=== PATIENT | female | born 1995 | race Caucasian/White ===

== ENCOUNTER 2020-01-10 14:41 | Observation (INO) | payer OTHER ==
[2020-01-10] MEDS ORDERED: IV RINGERS,LACTATED 1000ML 1,000 ML IV SCH (15:37)
[2020-01-10 15:48] LABS: BILIRUBIN,URINE SMALL (NEG); CLARITY,URINE CLOUDY; COLOR,URINE AMBER; NITRITE,URINE NEGATIVE (NEG); PROTEIN,URINE NEGATIVE (NEG-TRACE)
[2020-01-10 15:52] LABS: SQUAMOUS EPITHELIAL CELL,UR MANY /LPF
[2020-01-10 15:53] LABS: BACTERIA,URINE MANY /HPF (0-FEW); WBC,URINE 20-40 /HPF (0-4)
== END 2020-01-10 16:40 | disposition home or self-care (01) ==
LOC: 3 SO LND 14:41
PROVIDERS: ADMIT Obstetrics & Gynecology; ATTEND Obstetrics & Gynecology
DX: O26.853 Spotting complicating pregnancy, third trimester (principal); O62.9 Abnormality of forces of labor, unspecified; Z3A.28 28 weeks gestation of pregnancy
CPT/HCPCS: 81001; 87086; G0378; G0379

== ENCOUNTER 2020-01-14 03:46 | Inpatient (IN) | payer OTHER ==
[~2020-01-14] VITALS: Ht 165.1 cm; Wt 95.3 kg
[2020-01-14] MEDS ORDERED: OXYTOCIN 30 UNIT/500 ML PREMIX 500 ML IV ONE (03:54)
[2020-01-14] MEDS ORDERED: OXYTOCIN PREMIX 30 UNIT/500 ML NS BAG. IV ONE (04:00)
[2020-01-14] MEDS ORDERED: IV RINGERS,LACTATED 1000ML 1,000 ML IV SCH (04:12)
[2020-01-14] MEDS ORDERED: OXYTOCIN 30 UNIT/500 ML PREMIX 500 ML IV PRN ×3 (04:15→05:00)
[2020-01-14] MEDS ORDERED: IBUPROFEN 400 MG TABLET. PO PRN ×2 (04:15→05:00)
[2020-01-14] MEDS ORDERED: LIDOCAINE 1% PF 30 ML VIAL. INJ PRN (04:15)
[2020-01-14] MEDS ORDERED: TERBUTALINE 1 MG/ML VIAL. SQ PRN (04:15)
[2020-01-14] MEDS ORDERED: 0.9 % SODIUM CHLORIDE 10 ML DISP.SYRIN. IV PRN ×2 (04:15→05:00)
--- NOTE | 2020-01-14 04:37 | PDOC1 ---
OB - History Hx of Present Care: Limited Care Ultrasounds: Normal mid trimester US Obstetrical Complications: None Medical Complications: None Past Family/Social History * Past Medical, Surgical, Family and Obstetric Histories reviewed from chart. Blood Type: Unknown Rubella: Unknown RPR/VDRL: Unknown GBS Status: Unknown HBsAG: Unknown OB - Chief Complaint & HPI Date of Admission: Date of Admission: Jan 14, 2020 at 03:46 Chief Complaint/History : 5 Para: 3 EGA: 28 Reason for admission: labor, rupture of membranes Admission Nurse Assessment Rev: Yes OB - Admission Exam Physical Exam HEENT: Normal Heart: Regular Rate Lungs: Clear Abdomen: Gravid, Non tender, Soft Extremities: Edema Reflexes: Normal Cervical Dilatation: 10cm Effacement: 100% Station: +1 Membranes: Ruptured Amniotic Fluid: Clear Contractions on Admission: < 5 Minutes Apart Intensity: Firm Text A: 28 wks PPROM PTL Limited PNC P: Admit for imminent delivery. KALEB BURCH Jr, MD Jan 14, 2020 04:36
[2020-01-14] MEDS ORDERED: ONDANSETRON PF 4 MG/2 ML VIAL. ONE (04:42)
[2020-01-14 04:46] LABS: BILIRUBIN,URINE SMALL (NEG); CLARITY,URINE CLEAR; COLOR,URINE AMBER; NITRITE,URINE NEGATIVE (NEG); PH,URINE 6.5 (<5.0-8.0); PROTEIN,URINE 30 mg/dL (NEG-TRACE)
--- NOTE | 2020-01-14 04:46 | PDOC ---
VAGINAL DELIVERY DATE DATE: 01/14/20 TIME: 04:37 : 5 Para: 4 EGA: 28 VAGINAL DELIVERY: VTX VACCUM ASSISTED: No PLACENTA: Spontaneous SEX: Male WEIGHT Weight [ ] Nuchal Cord: No Amniotic Fluid: Clear PAIN: Natural EPISIOTOMY: No EXTENSION: No EBL 300 ml COMPLICATIONS none CONDITION pt. stable Signs of Intrauterine Infectio: None Shoulder Dystocia: No DIAGNOSIS Placenta shows 50% abruption. KALEB BURCH Jr, MD Jan 14, 2020 04:46
[2020-01-14 04:52] LABS: SQUAMOUS EPITHELIAL CELL,UR MOD /LPF
[2020-01-14 04:53] LABS: AMORPHOUS SEDIMENT,UR PRESENT /HPF; BACTERIA,URINE FEW /HPF (0-FEW)
[2020-01-14 04:57] LABS: AMPHETAMINE/METHAMPHETAMINE NEG (NEG); BARBITURATES NEG (NEG); BENZODIAZEPINES NEG (NEG); CANNABINOIDS NEG (NEG); COCAINE NEG (NEG); METHADONE NEG (NEG); OPIATES NEG (NEG); PHENCYCLIDINE NEG (NEG)
[2020-01-14] MEDS ORDERED: MAGNESIUM HYDROXIDE 2,400 MG/30 ML ORAL.SUSP. PO PRN (05:00)
[2020-01-14] MEDS ORDERED: SIMETHICONE 80 MG TAB.CHEW PO PRN (05:00)
[2020-01-14] MEDS ORDERED: ACETAMINOPHEN 325 MG TABLET. PO PRN (05:00)
[2020-01-14] MEDS ORDERED: TDaP (Adacel) per PROTOCOL. MC PRN (05:00)
[2020-01-14] MEDS ORDERED: diphenhydrAMINE HCL 25 MG CAPSULE PO PRN (05:00)
[2020-01-14] MEDS ORDERED: ONDANSETRON PF 4 MG/2 ML VIAL. IVP PRN (05:00)
[2020-01-14] MEDS ORDERED: oxyCODONE/APAP 5/325 1 TAB TABLET PO PRN (05:00)
[2020-01-14] MEDS ORDERED: PHENYLEPH/MINERAL OIL/PETROLAT RECTAL OINTMENT TUBE. RC PRN (05:00)
[2020-01-14] MEDS ORDERED: MAG HYDROX/ALUMINUM HYD/SIMETH 30 ML ORAL.SUSP PO PRN (05:00)
[2020-01-14] MEDS ORDERED: DOCUSATE SODIUM 100 MG CAPSULE. PO PRN (05:00)
[2020-01-14] MEDS ORDERED: MMR per PROTOCOL. MC PRN (05:00)
[2020-01-14] MEDS ORDERED: ZOLPIDEM 5 MG TABLET. PO PRN (05:00)
[2020-01-14] MEDS ORDERED: BENZOCAINE 20% TOPICAL AEROSOL SPRAY 57GM CAN. TP PRN (05:00)
[2020-01-14] MEDS ORDERED: HYDROCORTISONE 1% TOPICAL OINTMENT 30GM TUBE. TP PRN (05:00)
[2020-01-14 05:06] LABS: BASO # 0.1 x10^3/uL (0.0-0.2); BASO % 1 % (0-3); EOS % 0 % (0-3); HEMATOCRIT 35.4 % (36.0-47.0); HEMOGLOBIN 12.2 g/dL (12.0-15.5); LYMPH % 14 % (24-48); MEAN CORPUSCULAR HEMOGLOBIN 31 pg (25-35); MEAN CORPUSCULAR HGB CONC 34 g/dL (31-37); MEAN CORPUSCULAR VOLUME 90 fL (79-100); MONO # 0.7 x10^3/uL (0.0-1.1); MONO % 5 % (0-9); NEUT # 11.7 x10^3/uL (1.8-7.7); NEUT % 81 % (31-73); PLATELET COUNT 299 x10^3/uL (140-400); RED BLOOD COUNT 3.95 x10^6/uL (3.50-5.40); RED CELL DISTRIBUTION WIDTH 13.9 % (11.5-14.5); WHITE BLOOD COUNT 14.5 x10^3/uL (4.0-11.0)
[2020-01-14 05:44] VITALS: BP 130/90
[2020-01-14] MEDS ORDERED: MULTIVITAMIN with MINERAL TABLET. PO SCH (09:00)
[2020-01-14 13:30] VITALS: BP 102/62
--- NOTE | 2020-01-14 13:49 | PDOC3 ---
OB DISCHARGE SUMMARY DATE OF ADMISSION: 01/14/20 DATE OF DISCHARGE: 01/14/20 REASON FOR ADMISSION: labor, PPROM INTRAPARTUM PROCEDURES: Spontanous Vag Deliv DISCHARGE DIAGNOSIS: Others (28 wk gestation delivery with evidence placental abruption 50%.) DISCHARGE INFORMATION: Activity (ad rohith), Diet (regular), Instructions (pelvic rest x 6 wks.) HOSPITAL COURSE PPROM delivered vaginally. transferred to [facility] NICU. KALEB BURCH Jr, MD Jan 14, 2020 13:49
[2020-01-14] MEDS ORDERED: IBUP-1027 PO (13:50)
--- NOTE | 2020-01-14 13:51 | DISCH ---
DISCHARGE INSTRUCTIONS Condition on Discharge Condition on Discharge: Stable Activity After Discharge Activity Instructions for Disc: Activity as tolerated Lifting Instructions after Dis: No heavy lifting Driving Instructions after Dis: Do not drive today Diet after Discharge Diet after Discharge: Regular Contacting the DRGeena after DC Call your doctor for: Concerns you may have Follow-Up Follow up with: Dr. Dutton in 2 wks KALEB DUTTON Jr, MD Jan 14, 2020 13:51
--- NOTE | 2020-01-14 15:55 | NUR ---
Discharge Discharge instructions given to patient at this time, no questions or concerns noted. To follow up with DR Dutton in 2 weeks. Patient left per wheelchair with her boyfriend and all belongings.
[2020-01-15] MEDS ORDERED: FERROUS SULFATE 325 MG TABLET. PO SCH (08:00)
--- NOTE | 2020-01-19 12:07 | PATHOLOGY ---
[facility] Accession Number: [id number] . 01 Material submitted: . placenta - PLACENTA . 01 Clinical history: . ; VAGINAL DELIVERY OF 28 WEEK OLD WITH 50% ABRUPTION, EDC 04/01/20 Precipitous labor (less than three hours); abruptio placenta; premature rupture of membranes; delivery architect of upon arrival . . . 02 Diagnosis: Placenta, vaginal delivery: - Immature butts placenta weighing 348 grams (at approximately the 75th percentile for a 28 week gestation). - Three vessel umbilical cord with eccentric insertion into the chorionic plate. - Marked acute chorioamnionitis, with acute inflammation involving all three vessels of the umbilical cord and numerous chorionic plate vessels. 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 (MLK/db; 01/18/2020) LBQ 01/19/2020 1124 Local . 02 Comment: The findings are discussed with Dr. Hector via telephone on 01/18/2020 at approximately 4:10 in the afternoon. (MLK/db; 01/18/2020) . 02 Electronically signed: . Arnoldo Silvestre MD, Pathologist NPI- [id number] . 01 Gross description: . The specimen is received in formalin, labeled "Jordi Bailey, placenta". Received is a butts placenta with attached membranes and umbilical cord with a trimmed placental weight of 348 g and measuring 15.2 x 12.5 x 2.5 cm in greatest dimensions. The membranes are dusky pacheco-العلي and translucent in appearance, and the site of membrane rupture is 3.4 cm from the placental margin. The surface is intact displaying a pacheco-العلي appearance and normal arborizing vascular pattern. The trivascular umbilical cord measures 40.9 cm in length by 1.3 cm in diameter and inserts eccentrically, 1.5 cm from the closest placental margin. The umbilical cord is white-العلي to blue-pacheco in appearance with minimal helical twisting. The maternal surface is pacheco-brown and disrupted over an area measuring 11.5 x 7.1 cm (approximately 40%); a slight amount of adherent blood coagulum is seen on the surface. Sectioning reveals red-brown cut surfaces with no grossly distinct nodules or lesions. The specimen is submitted representatively as follows: . A1 proximal umbilical cord and surface vessels A2 umbilical cord and membrane roll A3 textile machinery sales representative section of disrupted maternal surface A4 textile machinery sales representative section of intact maternal surface. (CAA; 01/17/2020) QA/QAC 01/17/2020 1733 Local . 02 Pathologist provided ICD-10: O41.1230, O43.893, Z37.0, Z3A.28 . 02 CPT . 501824 Specimen Comment: A courtesy copy of this report has been sent to [phone] Specimen Comment: Report sent to Performed at: 01 [facility] [address], [place] [id number] MD Bart Jacobson MD Phone: [phone] Performed at: 02 [facility] [address] [place], [place] [id number] MD Grey Fallon MD Phone: [phone]
== END 2020-01-14 18:06 | disposition home or self-care (01) | DRG 805 ==
LOC: 3 SO LND 03:46 → 3 NORTH 07:44
PROVIDERS: ADMIT Obstetrics & Gynecology; ATTEND Obstetrics & Gynecology
PROC: 10E0XZZ Delivery of Products of Conception, External Approach (ICD-10-PCS; principal; 2020-01-14)
DX: O42.913 Preterm premature rupture of membranes, unspecified as to length of time between rupture and onset of labor, third trimester (principal); O60.14X0 Preterm labor third trimester with preterm delivery third trimester, not applicable or unspecified; Z37.0 Single live birth; O45.93 Premature separation of placenta, unspecified, third trimester; Z3A.00 Weeks of gestation of pregnancy not specified; Z20.828 Contact with and (suspected) exposure to other viral communicable diseases; Z3A.28 28 weeks gestation of pregnancy
CPT/HCPCS: 36415; 80307; 81001; 85025; 86592; 86762; 86850; 86900; 86901; 87086; 87340; 87426; 88307; J2405; J2590; J7120; G0378; U0003-CS